=== PATIENT | male | born 2000 | race Caucasian/White ===

== ENCOUNTER 2020-05-08 20:52 | Emergency (ER) | payer OTHER ==
[~2020-05-08] VITALS: Ht 180.3 cm; Wt 92.3 kg
[2020-05-08] MEDS ORDERED: DOXY100C PO (21:06)
[2020-05-08] MEDS ORDERED: diphenhydrAMINE 50MG/ML VIAL (J1200) IV STA (22:25)
[2020-05-08] MEDS ORDERED: KETOROLAC 30 MG/ML 1ML VIAL IV ONE (22:30)
[2020-05-08] MEDS ORDERED: NS 1,000 ML IV ONE (22:30)
[2020-05-08] MEDS ORDERED: METOCLOPRAMIDE INJ 10MG/2ML VIAL (J2765 PER 1) IV ONE (22:30)
[2020-05-08 22:52] LABS: BASO # 0.1 10^3/uL (0.0-0.2); BASO % 0.9 % (0.0-1.0); EOS # 0.1 10^3/uL (0.0-0.5); EOS % 2.3 % (0.0-3.0); HEMATOCRIT 46.1 % (42.0-52.0); HEMOGLOBIN 15.2 g/dl (13.5-17.5); LYMPH # 1.8 10^3/uL (1.5-5.0); LYMPH % 32.1 % (24.0-44.0); MEAN CORPUSCULAR HEMOGLOBIN 28.7 pg (27.0-33.0); MONO # 0.5 10^3/uL (0.0-0.8); MONO % 8.9 % (0.0-5.0); NEUTROPHILS # 3.1 10^3/uL (1.5-8.5); NEUTROPHILS % 55.4 % (36.0-66.0); PLATELET COUNT, AUTOMATED 194 10^3/uL (150-450); WHITE BLOOD COUNT 5.6 10^3/uL (4.0-10.0)
[2020-05-08 23:11] LABS: BLOOD UREA NITROGEN 14 MG/DL (7-18); CALCIUM LEVEL 8.6 MG/DL (8.5-10.1); CARBON DIOXIDE LEVEL 29 MEQ/L (21-32); CHLORIDE LEVEL 108 MEQ/L (98-107); GLUCOSE, FASTING 75 MG/DL (70-100); SODIUM LEVEL 142 MEQ/L (136-145)
[2020-05-08 23:38] VITALS: BP 131/74
== END 2020-05-08 23:40 | disposition home or self-care (01) ==
LOC: M ED 20:52
DX: R11.10 Vomiting, unspecified (principal); R51.9 Headache, unspecified; T36.95XA Adverse effect of unspecified systemic antibiotic, initial encounter; X58.XXXA Exposure to other specified factors, initial encounter; Y92.89 Other specified places as the place of occurrence of the external cause; Z88.1 Allergy status to other antibiotic agents
CPT/HCPCS: 80048; 83735; 85025; 96374; 96375; 99284; J1200; J1885; J2765